=== PATIENT | female | born 1940 | race Caucasian/White ===

== ENCOUNTER 2017-10-11 19:02 | Inpatient (IN) | payer MEDICARE ==
[~2017-10-11] VITALS: Ht 154.9 cm; Wt 74.4 kg
[2017-10-11] MEDS ORDERED: IV NS 0.9% 500 ML BAG IV ONE (19:30)
[2017-10-11] MEDS ORDERED: HYDROMORPHONE INJ 2 MG/ML DISP.SYRIN IV ONE (19:30)
[2017-10-11] MEDS ORDERED: ONDANSETRON HCL/PF 4 MG/2 ML VIAL IVP ONE (19:30)
--- NOTE | 2017-10-11 19:37 | NUR ---
PT REC'D TO ER VIA EMS PT FELLL AT HOME WAS FOUND OUTSIDE WALKING . LEFT SIDE OF BUMP AND ACTIVE BLEEDING ICE AND PRESSURE APPLIED. IV STATED 18G IVP FLUSHED LABS SENT TO LAB . PT CANT REMEMBER WHAT HAPPENED OR WHAT SHE DID TODAY . O2 APPLIAWAITING EVALUATION BY ER PROVIDER. 02 APPPLIED N.C 2 L 99%
[2017-10-11 19:38] LABS: BASOPHILS % (AUTO) 0.5 % (0.0-2.0); EOSINOPHILS # (AUTO) 0.3 /CMM (0.0-0.7); EOSINOPHILS % (AUTO) 4.3 % (0.0-6.0); HEMATOCRIT 41 % (33-45); HEMOGLOBIN 13.6 g/dL (11.5-14.8); LYMPHOCYTES # (AUTO) 0.9 /CMM (0.8-4.8); LYMPHOCYTES % (AUTO) 12.8 % (20.0-44.0); MEAN CORPUSCULAR HEMOGLOBIN 29 PG (26.0-33.0); MEAN CORPUSCULAR HGB CONC 33 g/dl (31.0-36.0); MEAN CORPUSCULAR VOLUME 87 fL (82-100); MONOCYTES # (AUTO) 0.6 /CMM (0.1-1.30); MONOCYTES % (AUTO) 9.2 % (2.0-12.0); NEUTROPHILS # (AUTO) 4.9 /CMM (1.8-8.9); NEUTROPHILS % (AUTO) 73.2 % (43.0-81.0); PLATELET COUNT (AUTO) 194 /CMM (150-450); RDW COEFFICIENT OF VARIATION 13.7 (11.5-15.0); RED BLOOD CELL COUNT(AUTO) 4.76 MIL/uL (4.0-5.2); WHITE BLOOD COUNT (AUTO) 6.7 K/uL (4.3-11.0)
[2017-10-11 19:51] LABS: CALCIUM, SERUM 9.8 mg/dL (8.5-10.1); CARBON DIOXIDE 31 mmol/L (21-32); CHLORIDE 102 mmol/L (98-107); GLUCOSE 118 mg/dL (74-106); POTASSIUM 3.5 mmol/L (3.5-5.1); SODIUM SERUM 138 mmol/L (136-145); UREA NITROGEN, BLOOD 19 mg/dL (7-18)
[2017-10-11 19:58] LABS: INR 0.91 (0.87-1.13); PROTHROMBIN TIME 9.5 SECS (9.5-12.7)
[2017-10-11 20:02] LABS: ALANINE AMINOTRANSFERASE 32 U/L (12-78); ALCOHOL, BLOOD < 3 mg/dL (0-0); ALKALINE PHOSPHATASE 93 U/L (46-116); ASPARTATE AMINOTRANSFERASE 26 U/L (15-37); BILIRUBIN,DIRECT 0.1 mg/dL (0.0-0.2); BILIRUBIN,TOTAL 0.7 mg/dL (0.2-1.0); TOTAL PROTEIN, SERUM 7.3 g/dL (6.4-8.2)
[2017-10-11 20:03] LABS: SALICYLATE 0.2 mg/dL (2.8-20.0); TROPONIN I < 0.017 ng/mL (0.00-0.056)
--- NOTE | 2017-10-11 20:20 | NUR ---
CALLED DR ROBBINS, LEFT VOICEMAIL.
[2017-10-11] MEDS ORDERED: [UNRECOGNIZED DRUG - SUPPLY] (20:28)
--- NOTE | 2017-10-11 20:28 | NUR ---
PT RETURNED FROM CT, PAIN MEDICATION DILAUDID GIVEN, DTR AT BEDSIDE, PT STABLE AT THIS TIME. VS 160/76 86 95%. PT AWAKE AND ALERT A&OX4
[2017-10-11 20:40] LABS: THYROID STIMULATING HORMONE 2.268 uIU/mL (0.358-3.74)
--- NOTE | 2017-10-11 21:01 | NUR ---
TRANSFERRED TO ICU, REPORT GIVEN TO RECEIVING NURSE, PT STABLE AT TIME OF TRANSFER. PT TAKEN VIA GURNEY. FIRE EXTINGUISHER TECHNICIAN SPOKE WITH FAMILY REGARDING PT CONDITION AND HOSPITAL RULES OF CONDUCT. PT'S DTR AND DTR-IN-LAW HAD PHYSICAL OUTBURST WHILE IN ER AND WERE ASKED TO LEAVE BY SECURITY. VSS, PT IN NAD @ THIS TIME.
[2017-10-11] MEDS ORDERED: IV NS 0.9% 1,000 ML IV PRN (21:59)
[2017-10-11] MEDS ORDERED: PROCHLORPERAZINE MALEATE SUPP 25 MG/SUPP.RECT SUPP.RECT RC PRN (22:00)
[2017-10-11] MEDS ORDERED: ACETAMINOPHEN W/ CODEINE#3 1 EA TABLET PO PRN (22:00)
[2017-10-11] MEDS ORDERED: MORPHINE SULFATE INJ 2 MG/ML DISP.SYRIN IV PRN (22:00)
[2017-10-11] MEDS ORDERED: ONDANSETRON HCL/PF 4 MG/2 ML VIAL IVP PRN (22:00)
[2017-10-11] MEDS ORDERED: BLOOD SUGAR DIAGNOSTIC 1 EACH STRIP IN SCH (22:00)
--- NOTE | 2017-10-11 22:15 | NUR ---
HEAVY CLEANER: RECEIVED PT FROM ER VIA [facility]. PER REPORT, PT IS A S/P FALL FROM HOME RESULTING TO SMALL AMT. OF SUB-ACUTE HEMORRHAGE/ICH. ON ROOM AIR WT NO ACUTE DISTRESS, MINIMAL DISCOMFORT (3/10) NOTED ON THE LEFT. SIDE OF FOREHEAD WOUND. SCANT BLEEDING NOTED WT ER STAFF TX INITIATION. ALERT ORIENTED X 3 YET HAS NO RECOLLECTION OF HOW SHE ENDED UP FALLING. SR ON SPORTS APPAREL INTERNSHIP. HOB AT 30 DEGREES. SAFETY PRECAUTION NOTED AT ALL TIMES.
[2017-10-11 22:30] VITALS: BP 136/56
--- NOTE | 2017-10-11 22:30 | NUR ---
DATABASE MARKETING ANALYST: SON JOSE ALFREDO AND AT BEDSIDE. PT PASSED SWALLOW EVAL.
--- NOTE | 2017-10-11 22:31 | NUR ---
MEDICAL MASSAGE THERAPIST NOTES SPOKE TO PT'S TWO SONS (JOSE ALFREDO AND ANJELICA) IN REGARDS TO THEIR DISPUTE WITH THEIR SISTER (MACK). BOTH SONS REQUEST TO HAVE LIMITED SUPERVISED VISITS IN PLACE FOR MACK AND TO RESTRICT HER FROM MAKING HEALTH DECISIONS DUE TO THEIR BELIEVE THAT MACK IS TRYING TO FINANCIALLY ABUSE THE PATIENT. I EXPLAINED TO THEM THAT THE PATIENT IS A/OX3 AND IS THE DECISION-MAKER FOR WHO CAN VISIT. ALSO, IF THE DAUGHTER HAS DPOA THEN WE ARE OBLIGATED TO HONOR IT. PT'S SON ACKNOWLEDGE THE SITUATION AND MENTIONED THAT THEY ARE THINKING OF TAKING LEGAL ACTION AGAINST THEIR SISTER.
[2017-10-11 23:00] VITALS: BP 158/73
[2017-10-11] MEDS: BLOOD SUGAR DIAGNOSTIC 1 EACH STRIP IN SCH (23:16)
[2017-10-11 23:30] VITALS: BP 179/74
[2017-10-11] MEDS ORDERED: SIMVASTATIN 10 MG TABLET ONE (23:31)
[2017-10-11 23:36] VITALS: BP 182/78
[2017-10-11] MEDS: SIMVASTATIN 10 MG TABLET PO SCH (23:39)
[2017-10-11] MEDS ORDERED: MORPHINE SULFATE INJ 4 MG/ML DISP.SYRIN ONE (23:39)
[2017-10-12] VITALS (36 sets, daily range): BP systolic 91–182; BP diastolic 38–92
[2017-10-12] MEDS ORDERED: MORPHINE SULFATE INJ 4 MG/ML DISP.SYRIN IV PRN
[2017-10-12] MEDS ORDERED: METOPROLOL TARTRATE 25 MG TABLET ONE (01:15)
[2017-10-12] MEDS: METOPROLOL TARTRATE 25 MG TABLET PO SCH ×3 (01:17→16:42)
--- NOTE | 2017-10-12 01:50 | NUR ---
ORACLE ENGINEER NOTES PT'S DAUGHTER MACK IS AT BEDSIDE. SHE PROVIDED THE ORIGINAL PAPERWORK FOR DPOA AND ADVANCED HEALTH DIRECTIVE. COPIES WERE MADE AND PLACED IN CHART.
--- NOTE | 2017-10-12 02:00 | NUR ---
TEAROOM HOST/HOSTESS: DR. DONELL SAUCEDO AT BED TO EXAMINE PT. DAUGHTER AT BEDSIDE WELL.
--- NOTE | 2017-10-12 03:10 | NUR ---
PORTABLE SAWYER: PLACED ON 2L 02 VIA NC FOR 02 SAT WENT DOWN TO 90%. WILL CONTINUE TO MONITOR.
[2017-10-12] MEDS ORDERED: HYDROMORPHONE INJ 2 MG/ML DISP.SYRIN ONE (03:15)
[2017-10-12] MEDS ORDERED: CLONIDINE HCL 0.1 MG TABLET ONE (03:16)
[2017-10-12] MEDS: CLONIDINE HCL 0.1 MG TABLET PO PRN ×2 (03:17→18:17)
[2017-10-12] MEDS: HYDROMORPHONE 1 MG/1 ML DISP.SYRIN IV PRN (03:17)
--- NOTE | 2017-10-12 04:00 | NUR ---
DEPARTMENT STORE GENERAL MANAGER NOTES CONTACTED DR MARLEY IN REGARDS TO THE ADMISSION DX. MADE HER AWARE THAT THE CURRENT ORDER WAS UNDER STROKE AND THAT WE WOULD OF HAD TO INITIATED THE STROKE PROTOCOL. DR MARLEY DID NOT WANT TO INITIATE THE STROKE PROTOCOL AND UPDATED THE DX TO INTRACRANIAL HEMORRHAGE.
--- NOTE | 2017-10-12 04:30 | NUR ---
DIRECTOR TRANSLATION: REASSESSED AFTER GIVEN CLONIDINE WT GOOD EFFECT. SBP LESS THAN 160 AT THIS TIME.
[2017-10-12 05:10] LABS: APPEARANCE,URINE CLEAR (CLEAR); BILIRUBIN,URINE NEGATIVE (NEGATIVE); BLOOD, URINE NEGATIVE Ery/uL (NEGATIVE); COLOR,URINE YELLOW (YELLOW); KETONES,URINE NEGATIVE (NEGATIVE); LEUKOCYTE ESTERASE ,URINE NEGATIVE (NEGATIVE); NITRITE, URINE NEGATIVE (NEGATIVE); PH,URINE 6.5 (5.0-8.0); PROTEIN,URINE NEGATIVE (NEGATIVE); UGLUCOSE NEGATIVE (NEGATIVE); UROBILINOGEN,URINE 0.2 EU/dL (0.2)
[2017-10-12 05:26] LABS: ALANINE AMINOTRANSFERASE 54 U/L (12-78); ALBUMIN 3.2 g/dL (3.4-5.0); ALKALINE PHOSPHATASE 87 U/L (46-116); ASPARTATE AMINOTRANSFERASE 76 U/L (15-37); BILIRUBIN,TOTAL 0.8 mg/dL (0.2-1.0); CALCIUM, SERUM 8.8 mg/dL (8.5-10.1); CARBON DIOXIDE 28 mmol/L (21-32); CHLORIDE 103 mmol/L (98-107); CREATININE 0.9 mg/dL (0.6-1.3); GLUCOSE 126 mg/dL (74-106); MAGNESIUM 1.9 mg/dL (1.8-2.4); POTASSIUM 3.4 mmol/L (3.5-5.1); SODIUM SERUM 136 mmol/L (136-145); TOTAL PROTEIN, SERUM 6.3 g/dL (6.4-8.2); UREA NITROGEN, BLOOD 14 mg/dL (7-18)
[2017-10-12 05:49] LABS: C-REACTIVE PROTEIN 0.3 mg/dL (0.0-0.9); CHOLESTEROL 147 mg/dL (<200); CREATINE KINASE, TOTAL 166 U/L (26-192); HDL CHOLESTEROL 66 mg/dL (40-60); LDL 64 mg/dL (0-99); THYROID STIMULATING HORMONE 4.056 uIU/mL (0.358-3.74); TRIGLYCERIDES 77 mg/dL (30-150)
[2017-10-12] MEDS: BLOOD SUGAR DIAGNOSTIC 1 EACH STRIP IN SCH ×4 (06:48→23:39)
--- NOTE | 2017-10-12 06:50 | NUR ---
THERMOCOUPLE TESTER: BLOOD SUGAR AT 150. NO MEL. REMAINED A/O X 3. ON 2L 02 VIA NC WT NO ACUTE DISTRESS, NO C/O PAIN. NO ACTIVE BLEEDING NOTED ON LEFT FOREHEAD WOUND. SR ON REHABILITATION PROGRAM MANAGER. REMAINED AFEBRILE. SAFETY PRECAUTION NOTED AT ALL TIMES. CALL LIGHT KEPT WITHIN REACH.
[2017-10-12] MEDS: DOCUSATE SODIUM 100 MG CAPSULE PO SCH ×2 (09:42→16:42)
[2017-10-12] MEDS: SENNOSIDES/DOCUSATE SODIUM 1 TAB TABLET PO SCH (09:42)
[2017-10-12] MEDS: FAMOTIDINE/PF INJ 20 MG/2 ML VIAL IV SCH (09:43)
[2017-10-12] MEDS: HYDROCODONE/APAP 5/325MG 1 EACH TABLET PO PRN ×2 (10:57→17:01)
[2017-10-12] MEDS ORDERED: POTASSIUM CHLORIDE 20 MEQ TAB.PRT.SR PO SCH (11:00)
--- NOTE | 2017-10-12 19:24 | NUR ---
BUSINESS ASSISTANT NON ADMIT STK MEDS FOR PT SAFETY.
--- NOTE | 2017-10-12 21:39 | NUR ---
BOAT DIESEL MOTOR MECHANIC ORTHOSTATIC BLOOD PRESSURE DONE; PT ASYMPTOMATIC.
[2017-10-12] MEDS: SIMVASTATIN 10 MG TABLET PO SCH (21:43)
--- NOTE | 2017-10-12 22:19 | NUR ---
TRANSACTION COORDINATOR REPORT GIVEN TO JUSTICE FOR CONTINUITY OF CARE.
--- NOTE | 2017-10-12 23:30 | NUR ---
RN NOTES RECEIVED PATIENT FROM ICU, PATIENT IS ALERT AND ORIENTED, DENIES ANY PAIN AND DISCOMFORT. PATIENT IS ON 2LPM OF O2 VIA NC, RESPIRATION IS EVEN AND UNLABORED WITH NO DISTRESS. PATIENT IS OBSERVED TO BE ALERT AND ORIENTED X3-4. NO DISTRESS. PATIENT ALSO NOTED WITH STEADY GAIT AND DENIES ANY DIZZINESS OR LIGHTHEADEDNESS. ORTHOSTATIC BP DONE, ASYMPTOMATIC. PATIENT WITH NO DEFICITS NOTED, NO ALTERATION IN MENTATION NOTED. PATIENT'S NEEDS ANTICIPATED AND MET. SAFETY AND COMFORT ENSURED. BED IN LOW AND LOCKED POSITION. CALL LIGHT IN REACH. BED ALARM IN PLACE FOR SAFETY PRECAUTION. L FOREHEAD WOUND ASSESSED, NO ACTIVE BLEEDING NOTED, REDRESSED AND KEPT CLEAN AND DRY. WILL MONITOR.
[2017-10-13] VITALS (7 sets, daily range): BP systolic 142–188; BP diastolic 56–82
[2017-10-13] MEDS: BLOOD SUGAR DIAGNOSTIC 1 EACH STRIP IN SCH ×3 (06:26→17:01)
[2017-10-13] MEDS: HYDROMORPHONE 1 MG/1 ML DISP.SYRIN IV PRN (07:04)
[2017-10-13 07:12] LABS: CALCIUM, SERUM 9.2 mg/dL (8.5-10.1); CARBON DIOXIDE 29 mmol/L (21-32); CHLORIDE 102 mmol/L (98-107); CREATININE 0.9 mg/dL (0.6-1.3); GLUCOSE 125 mg/dL (74-106); SODIUM SERUM 139 mmol/L (136-145); UREA NITROGEN, BLOOD 16 mg/dL (7-18)
--- NOTE | 2017-10-13 08:02 | NUR ---
WOUND CARE CONSULT: PT PRESENTS WITH LEFT FOREHEAD DRY ABRASION, LEFT HIP/FLANK BRUISING AND LEFT EYE BRUISING FROM FALL AT HOME. CURRENT GREG SCORE IS 21. PT NOTED TO HAVE SACRAL DIMPLE. PT IS CONTINENT AT THIS TIME. PT ON JAYJAY ISOFLEX BOBBY BED. PT ABLE TO TURN AND REPOSITION IN BED. WILL SEE PRN. TAYLOR IN AGREEMENT WITH PLAN OF CARE. Addendum: 10/13/17 at 0805 by KOREY HERNANDEZ WNDNU Amended: Links added.
--- NOTE | 2017-10-13 08:07 | NUR ---
.NET DEVELOPER OPENING NOTE PATIENT IS ALERT AND ORIENTED x4, FORGETFUL AT TIMES. WILL CONTINUE TO REORIENT THROUGHOUT SHIFT. ABLE TO MAKE NEEDS KNOWN. NO PAIN AT THIS TIME. NO SOB OR DISTRESS NOTED, ON 2L/MIN OF OXYGEN VIA NASAL CANNULA TOLERATING WELL SATURATING AT 96% AT THIS TIME. CALL LIGHT WITHIN REACH. SAFETY MEASURES IMPLEMENTED. BED ALARM ON FOR SAFETY. ON TELE NSR AT 67. BLOOD SUGARS TO BE MONITORED THROUGHOUT SHIFT. IV INTACT AND PATENT NO REDNESS OR SWELLING NOTED. NO FLUIDS AT THIS TIME. OUT OF BED THREE TIMES A DAY FOR MEALS. ORTHOSTATIC BLOOD PRESSURE TO BE DONE ON SHIFT. NO ISOLATION, NO KNOWN ALLERGIES. BED LOCKED IN LOWEST POSITION WILL CONTINUE TO MONITOR THROUGHOUT SHIFT
[2017-10-13] MEDS: SENNOSIDES/DOCUSATE SODIUM 1 TAB TABLET PO SCH (08:28)
[2017-10-13] MEDS: FAMOTIDINE/PF INJ 20 MG/2 ML VIAL IV SCH (08:28)
[2017-10-13] MEDS: DOCUSATE SODIUM 100 MG CAPSULE PO SCH ×2 (08:28→16:50)
[2017-10-13] MEDS: METOPROLOL TARTRATE 25 MG TABLET PO SCH ×2 (08:29→16:50)
[2017-10-13] MEDS ORDERED: Z GUARD REMEDY 2 OZ OINT TP PRN (08:30)
--- NOTE | 2017-10-13 09:30 | NUR ---
FORENSIC PSYCHIATRIST NOTE PATIENT IS CURRENTLY NPO AT THIS TIME. CAN NOT GIVE PO MEDS AT THIS TIME. PENDING SURGERY TOMORROW. WILL FOLLOW UP WITH MD IN REGARDS TO SURGERY.
--- NOTE | 2017-10-13 10:30 | NUR ---
CANCEL LAST NOTE
--- NOTE | 2017-10-13 13:10 | NUR ---
Social service consult for possible stroke. Patient is alert and oriented x4. Pt. appears forgetful at times. Pt. lives with her . Pt. is ambulatory with a steady gait with walker. Pt. will require home health services upon discharge. retail business development manager is aware and will follow up with pt. prior to discharge. No other social service needs are requested at this time. SW is available if needed.
[2017-10-13] MEDS: oxyCODONE HCL SR 10MG TAB.SR.12H PO SCH ×2 (13:59→21:18)
--- NOTE | 2017-10-13 14:33 | NUR ---
CONSTRUCTION ESTIMATOR NOTE PATIENT MOVED FROM ROOM 113-1 TO 115-1. ALL BELONGINGS WITH DAUGHTER AND PATIENT AT BEDSIDE.
--- NOTE | 2017-10-13 18:21 | NUR ---
TRACK LEADER CLOSING NOTE PATIENT IS ALERT AND ORIENTED x4, FORGETFUL AT TIMES. EASY TO REORIENT. CALL LIGHT WITHIN REACH AT ALL TIMES. SAFETY MEASURES IMPLEMENTED. ABLE TO COMMUNICATE NEEDS. ALL NURSING CARE NEEDS ATTENDED TO. ALL DUE MEDICATIONS GIVEN ORDERED. PARTICIPATED WITH PHYSICAL THERAPY, STEADY GAIT WITH WALKER. OUT OF BED THREE TIMES A DAY IN CHAIR FOR MEALS. NO SOB OR DISTRESS NOTED. NO PAIN AT THIS TIME. PER MD AND PT, PATIENT WILL NEED HOME HEALTH ONCE DISCHARGED. ON 2L/MIN VIA NASAL CANNULA FOR O2, SATURATING AT 985 TOLERATING WELL. IV ON LEFT AC INTACT AND PATENT NO REDNESS OR SWELLING NOTED. WILL ENDORSE TO SHEET MILL SUPERVISOR NURSE FOR MEL
--- NOTE | 2017-10-13 19:30 | NUR ---
PRECISION ASSEMBLY INSPECTOR INITIAL NOTES RECEIVED PATIENT AWAKE A/OX4 , WALKING TO RESTROOM IN STEADY GAIT. DENIES PAIN OR DISCOMORT. DENIES SOB, ON RA. RESPIRATIONS EVEN AND UNLABORED. SKIN WARM AND DRY TO TOUCH. ON TELE MONITOR SR 65. SIDE RAILS UP AND LOCKED. FALL PRECAUTIONS OBSERVED. INFORMED TO PRESS CALL LIGHT TO CALL FOR ASSISTANCE, PATIENT VERBALIZED UNDERSTANDING. CALL LIGHT KEPT WITHIN EASY REACH. WILL CONTINUE TO MONITOR.
[2017-10-13] MEDS: SIMVASTATIN 10 MG TABLET PO SCH (21:18)
--- NOTE | 2017-10-13 21:18 | NUR ---
TRAFFIC LAW ATTORNEY NOTES PATIENT DENIES PAIN OR DISCOMFORT, STATES SHE TAKE OXYCONTIN REGULARLY AT HOME. WILL CONTINUE TO MONITOR.
[2017-10-14] VITALS (12 sets, daily range): BP systolic 130–181; BP diastolic 63–97
[2017-10-14] MEDS: BLOOD SUGAR DIAGNOSTIC 1 EACH STRIP IN SCH ×4 (00:47→17:05)
[2017-10-14] MEDS: HYDROMORPHONE 1 MG/1 ML DISP.SYRIN IV PRN ×3 (07:02→15:50)
--- NOTE | 2017-10-14 07:43 | NUR ---
HIGH LIFT DRIVER CLOSING NOTES NO SIGNIFICANT CHANGES OVERNIGHT. ALL NEEDS ANTICIPATED AND MET. NO RESPIRATORY DISTRESS NOTED. PAIN MONITORED AND MANAGED NEEDED. SKIN WARM AND DRY TO TOUCH. FALL PRECAUTIONS OBSERVED. ALERT AND ORIENTED. SIDE RAILS UP AND LOCKED. BED KEPT AT LOWEST POSITION. CALL LIGHT KEPT WITHIN EASY REACH. CONTINUITY OF CARE ENDORSED TO AM NURSE.
[2017-10-14 07:54] LABS: CALCIUM, SERUM 9.4 mg/dL (8.5-10.1); CARBON DIOXIDE 28 mmol/L (21-32); CHLORIDE 101 mmol/L (98-107); CREATININE 1.1 mg/dL (0.6-1.3); GLUCOSE 132 mg/dL (74-106); MAGNESIUM 1.9 mg/dL (1.8-2.4); PHOSPHORUS 3.5 mg/dL (2.5-4.9); POTASSIUM 3.9 mmol/L (3.5-5.1); SODIUM SERUM 137 mmol/L (136-145); UREA NITROGEN, BLOOD 13 mg/dL (7-18)
[2017-10-14 07:57] LABS: BASOPHILS % (AUTO) 0.8 % (0.0-2.0); EOSINOPHILS # (AUTO) 0.3 /CMM (0.0-0.7); EOSINOPHILS % (AUTO) 5.1 % (0.0-6.0); HEMATOCRIT 43 % (33-45); HEMOGLOBIN 13.9 g/dL (11.5-14.8); LYMPHOCYTES # (AUTO) 1.1 /CMM (0.8-4.8); LYMPHOCYTES % (AUTO) 20.5 % (20.0-44.0); MEAN CORPUSCULAR HEMOGLOBIN 29 PG (26.0-33.0); MEAN CORPUSCULAR HGB CONC 33 g/dl (31.0-36.0); MEAN CORPUSCULAR VOLUME 88 fL (82-100); MONOCYTES # (AUTO) 0.5 /CMM (0.1-1.30); NEUTROPHILS # (AUTO) 3.3 /CMM (1.8-8.9); NEUTROPHILS % (AUTO) 63.6 % (43.0-81.0); PLATELET COUNT (AUTO) 182 /CMM (150-450); RDW COEFFICIENT OF VARIATION 14.5 (11.5-15.0); RED BLOOD CELL COUNT(AUTO) 4.81 MIL/uL (4.0-5.2); WHITE BLOOD COUNT (AUTO) 5.2 K/uL (4.3-11.0)
[2017-10-14 08:09] LABS: CHOLESTEROL 164 mg/dL (<200); HDL CHOLESTEROL 61 mg/dL (40-60); LDL 80 mg/dL (0-99); THYROID STIMULATING HORMONE 5.184 uIU/mL (0.358-3.74); TRIGLYCERIDES 169 mg/dL (30-150)
[2017-10-14] MEDS: SENNOSIDES/DOCUSATE SODIUM 1 TAB TABLET PO SCH ×2 (09:00→09:08)
[2017-10-14] MEDS: DOCUSATE SODIUM 100 MG CAPSULE PO SCH ×3 (09:00→17:00)
[2017-10-14] MEDS: METOPROLOL TARTRATE 25 MG TABLET PO SCH ×2 (09:09→17:05)
[2017-10-14] MEDS: FAMOTIDINE/PF INJ 20 MG/2 ML VIAL IV SCH (09:09)
[2017-10-14] MEDS: oxyCODONE HCL SR 10MG TAB.SR.12H PO SCH ×2 (09:09→21:15)
--- NOTE | 2017-10-14 09:13 | NUR ---
RN NOTE PT REFUSED STOOL SOFTENERS.
--- NOTE | 2017-10-14 13:00 | NUR ---
DAUGHTER AT BEDSIDE AND WANTED MD TO SEE HER MOTHER NOT NURSE PRACTITIONER,RAY HAY NOTIFIED,AND DR. WANG MADE AWARE ALSO.
[2017-10-14] MEDS: CLONIDINE HCL 0.1 MG TABLET PO PRN (15:43)
--- NOTE | 2017-10-14 18:12 | NUR ---
RN NOTE DR. WANG CALLED PT BP 190/83 POST CATAPRES PO AND LOPRESSOR. AWAITING CALL BACK FROM .
--- NOTE | 2017-10-14 18:18 | NUR ---
RN NOTE DR. WANG ORDERED PT TO [facility]. HYDRALAZINE 10 MG IV Q 4 HR SBP 160 CLODINE 0.2PO Q 4 HR PRN SBP >170
[2017-10-14] MEDS ORDERED: CLONIDINE HCL 0.1 MG TABLET PO PRN (18:30)
[2017-10-14] MEDS ORDERED: hydrALAZINE HCL IV 20 MG VIAL IV PRN (18:30)
--- NOTE | 2017-10-14 19:00 | NUR ---
RN NOTE PT C/O LEFT FOREARM PAIN. LOOKED AT PT ARM REMOVED IV @ 1300 IV SITE SLIGHTLY RED. NOW RED AND INFLAMED PT REMOVED GAUZE AND PAPER TAPE EARLIER AND GOWN HAS IRRITATED SITE, MEPILEX APPLIED AND WOUND CONSULT ORDERED.
--- NOTE | 2017-10-14 19:30 | NUR ---
ERNESTINA RN INITIAL NOTES RECEIVED PATIENT AWAKE A/OX4. DENIES SOB. C/O GENERALIZED PAIN THAT'S TOLERABLE. EXPRESSED FRUSTRATION ABOUT HER KIDS. SKIN WARM AND DRY TO TOUCH. ON TELE MONITOR SR 73. PATIENT INDEPENDENT WITH SELF CARE. PATIENT AMBULATORY. REMINDED TO USE WALKER WHEN GETTING OUT OF BED. SIDE RAILS UP AND LOCKED. BED KEPT AT LOWEST POSITION. CALL LIGHT KEPT WITHIN EASY REACH. WILL CONTINUE TO MONITOR.
[2017-10-14] MEDS: SIMVASTATIN 10 MG TABLET PO SCH (21:15)
[2017-10-15] VITALS (7 sets, daily range): BP systolic 141–161; BP diastolic 57–77
[2017-10-15] MEDS: BLOOD SUGAR DIAGNOSTIC 1 EACH STRIP IN SCH ×3 (00:37→12:03)
[2017-10-15] MEDS: HYDROMORPHONE 1 MG/1 ML DISP.SYRIN IV PRN (02:39)
--- NOTE | 2017-10-15 07:26 | NUR ---
ERNESTINA RN CLOSING NOTES NO SIGNIFICANT CHANGES OVERNIGHT. ALL NEEDS ANTICIPATED AND MET. PATIENT INDEPENDENT WITH SELF CARE. NO RESPIRATORY DISTRESS NOTED. PAIN MONITORED AND MANAGED NEEDED. SKIN WARM AND DRY TO TOUCH. FALL PRECAUTIONS OBSERVED. REMINDED TO USE CALL LIGHT AND WALKER. SR ON TELE MONITOR. RFA 22G PATENT AND INTACT. SIDE RAILS UP AND LOCKED. BED KEPT AT LOWEST POSITION. CALL LIGHT KEPT WITHIN EASY REACH. CONTINUITY OF CARE ENDORSED TO AM NURSE.
--- NOTE | 2017-10-15 07:33 | NUR ---
RN INITIAL NOTE PT A/OX3. SITTING IN BED AM CARE DONE WITH ASSISTANCE. ALL SAFETY MEASURES IN PLACE. WILL CONTINUE TO MONITOR CLOSELY. NEURO CHECKS DONE. WALKER @ BEDSIDE AND BED ALARM ON.
[2017-10-15] MEDS: oxyCODONE HCL SR 10MG TAB.SR.12H PO SCH (08:07)
[2017-10-15] MEDS: FAMOTIDINE/PF INJ 20 MG/2 ML VIAL IV SCH (08:07)
[2017-10-15] MEDS: METOPROLOL TARTRATE 25 MG TABLET PO SCH (08:07)
[2017-10-15] MEDS: DOCUSATE SODIUM 100 MG CAPSULE PO SCH (08:08)
[2017-10-15] MEDS: SENNOSIDES/DOCUSATE SODIUM 1 TAB TABLET PO SCH (08:08)
[2017-10-15] MEDS ORDERED: METOPROLOL TARTRATE 25 MG TABLET PO SCH (09:00)
[2017-10-15] MEDS ORDERED: AMLODIPINE BESYLATE 5 MG TABLET PO SCH (09:00)
--- NOTE | 2017-10-15 09:31 | NUR ---
RN NOTE DR. WANG @ BEDSIDE CHANGED DOSE OF LOPRESSOR TO 50MG PO. THIS AM 25MG GIVEN ALREADY. FABIOLA JAY WITNESSED WILL ONLY GIVEN 25MG MORE TO ADJUST TO 50MG DOSE CHANGE BY MD. WASTED 25MG OF LOPRESSOR.
[2017-10-15] MEDS ORDERED: HYDR-552 PO (10:48)
[2017-10-15] MEDS ORDERED: METO25TA20 PO (10:48)
[2017-10-15] MEDS ORDERED: AMLO5TAB2 PO (10:48)
[2017-10-15] MEDS ORDERED: POLYMYXIN B TP SCH (11:00)
[2017-10-15] MEDS ORDERED: BACITRACIN TP SCH (11:00)
--- NOTE | 2017-10-15 11:02 | NUR ---
WOUND CARE CONSULT: PT SEEN FOR LEFT FOREARM PREVIOUS IV SITE WITH TINY RED DOT AND SOME SURROUNDING REDNESS. NO DRAINAGE NOTED AT THIS TIME. PT SEEN AND EXAMINED BY DR WANG AND ORDER RECEIVED. DISCUSSED WITH NURSING STAFF. WILL SEE PRN. Addendum: 10/15/17 at 1104 by KOREY HERNANDEZ WNDNU Amended: Links added.
--- NOTE | 2017-10-15 13:53 | NUR ---
CASTING TECHNICIAN NOTE PT DC HOME WITH DAUGHTER. WHEELED PT OUT DC INSTRUCTIONS GIVEN EXIT CARE DONE. PICTURES TAKE DC ID BAND AND IV REMOVED. ALL ORDERS CARRIED OUT. RX GIVEN TO PT. ALL BELONGING GIVEN TO PT. EDUCATED PT ON IMPORTANCE OF F/U WITH PCP. DR WANG LOOKED @ PT LEFT FOREARM ORDERED KEFLEX AND WOUND CONSULT DONE.
== END 2017-10-15 14:10 | disposition home or self-care (01) | DRG 85 ==
LOC: ER 19:05 → ICU 21:20 → TELE-TD 10-12 22:39 → TELE1 10-12 22:55 → TELE-TD 10-14 18:34 → MEDSG1 10-15 09:57
PROVIDERS: ADMIT Internal Medicine; ATTEND Internal Medicine
DX: S06.6X0A Traumatic subarachnoid hemorrhage without loss of consciousness, initial encounter (principal); G93.40 Encephalopathy, unspecified; E44.0 Moderate protein-calorie malnutrition; R56.9 Unspecified convulsions; G45.9 Transient cerebral ischemic attack, unspecified; G90.1 Familial dysautonomia [Riley-Day]; E11.9 Type 2 diabetes mellitus without complications; W18.30XA Fall on same level, unspecified, initial encounter; Y92.89 Other specified places as the place of occurrence of the external cause; E78.5 Hyperlipidemia, unspecified; I10 Essential (primary) hypertension; Z86.73 Personal history of transient ischemic attack (TIA), and cerebral infarction without residual deficits; Z96.659 Presence of unspecified artificial knee joint; Z96.649 Presence of unspecified artificial hip joint; Z90.710 Acquired absence of both cervix and uterus; Z98.890 Other specified postprocedural states; E66.9 Obesity, unspecified; Z68.31 Body mass index [BMI] 31.0-31.9, adult; W19.XXXA Unspecified fall, initial encounter; M50.30 Other cervical disc degeneration, unspecified cervical region
CPT/HCPCS: 36415; 70450-TC; 71010-TC; 72125-TC; 80048-TC; 80053-TC; 80061-TC; 80076-TC; 80305; 81000-TC; 82330; 82550-TC; 82746; 82962-TC; 83735-TC; 84100-TC; 84439-TC; 84443-TC; 84480; 84484-TC; 85025-TC; 85385-TC; 85652-TC; 85730-TC; 86140-TC; 87081-TC; 92611-TC; 93307-TC; 93880-TC; 95819-TC; A4606; A6402; A6403; G0480; J0360; J1170; J2270; J3490; J7030; J7050; Z7610